=== PATIENT | female | born 1935 | race Caucasian/White ===

== ENCOUNTER 2023-10-13 15:22 | Inpatient (IN) | payer MEDICARE, OTHER ==
[~2023-10-13] VITALS: Ht 160 cm; Wt 63.5 kg
[~2023-10-13 15:22] MED LIST: PIPERACILLIN SODIUM/TAZOBACTAM 3.375 G in IV DEXTROSE 5% 100 ML IV SCH
[2023-10-13] MEDS ORDERED: HYDROMORPHONE 1 MG/1 ML DISP.SYRIN IV ONE ×2 (15:45→17:15)
[2023-10-13] MEDS ORDERED: NITROGLYCERIN OINT 1 GM PACKET TP ONE ×2 (15:45→16:00)
[2023-10-13] MEDS ORDERED: ONDANSETRON 4 MG/2 ML VIAL IV ONE (15:45)
[2023-10-13] MEDS ORDERED: MAGNESIUM SULFATE 2 GM in IV DEXTROSE 5% 100 ML IV ONE (15:45)
[2023-10-13] MEDS ORDERED: ONDANSETRON 4 MG/2 ML VIAL ONE (16:00)
[2023-10-13] MEDS ORDERED: HYDROMORPHONE 1 MG/1 ML DISP.SYRIN ONE ×2 (16:01→17:14)
[2023-10-13] MEDS ORDERED: MAGNESIUM SULFATE/D5W 200 ML ONE (16:01)
[2023-10-13 16:19] LABS: CALCIUM 10.1 mg/dL (8.5-10.1); CARBON DIOXIDE 26 mmol/L (21-32); CHLORIDE 105 mmol/L (98-107); GLUCOSE 160 mg/dL (74-106); SODIUM SERUM 145 mmol/L (136-145); UREA NITROGEN, BLOOD 15 mg/dL (7-18)
[2023-10-13 16:28] LABS: ALANINE AMINOTRANSFERASE 30 U/L (14-59); ALBUMIN 3.7 g/dL (3.4-5.0); ALKALINE PHOSPHATASE 111 U/L (50-136); ASPARTATE AMINOTRANSFERASE 26 U/L (15-37); BILIRUBIN,DIRECT 0.2 mg/dL (0.0-0.2); BILIRUBIN,TOTAL 1.2 mg/dL (0.2-1.0); LACTIC ACID 4.5 mmol/L (0.4-2.0); TOTAL PROTEIN, SERUM 7.9 g/dL (6.4-8.2)
[2023-10-13 16:30] LABS: BASOPHILS % (AUTO) 0.4 % (0.0-2.0); EOSINOPHILS % (AUTO) 0.2 % (0.0-7.0); HEMATOCRIT 45.1 % (31.2-41.9); LYMPHOCYTES # (AUTO) 0.6 K/uL (0.8-4.8); LYMPHOCYTES % (AUTO) 5.3 % (20.5-51.5); MEAN CORPUSCULAR HEMOGLOBIN 31.9 uug (24.7-32.8); MEAN CORPUSCULAR HGB CONC 33 g/dL (32.3-35.6); MEAN CORPUSCULAR VOLUME 95.8 fL (75.5-95.3); MONOCYTES # (AUTO) 0.5 K/uL (0.1-1.30); MONOCYTES % (AUTO) 4.7 % (0.0-11.0); NEUTROPHILS # (AUTO) 9.5 K/uL (1.8-8.9); NEUTROPHILS % (AUTO) 89.4 % (38.5-71.5); PLATELET COUNT (AUTO) 177 K/uL (179-408); RED BLOOD CELL COUNT(AUTO) 4.71 MIL/uL (3.63-4.92); RED CELL DISTRIBUTION WIDTH 14.8 % (12.3-17.7); WHITE BLOOD COUNT (AUTO) 10.6 K/uL (3.8-11.8)
[2023-10-13] MEDS ORDERED: IV NS 1000 ML 1,000 ML IV ONE (16:30)
[2023-10-13 16:47] LABS: DIFFERENTIAL COMMENT 1
[2023-10-13] MEDS ORDERED: METH5TAB34 PO (16:53)
[2023-10-13] MEDS ORDERED: ATOR80TA PO (16:53)
[2023-10-13] MEDS ORDERED: METH10TA7 PO (16:53)
[2023-10-13] MEDS ORDERED: ALPR0.5T8 PO (16:53)
[2023-10-13] MEDS ORDERED: LOSA25TA27 PO (16:53)
[2023-10-13] MEDS ORDERED: PIPERACILLIN/TAZOBACTAM/D5W 50 ML IV ONE (17:14)
[2023-10-13] MEDS ORDERED: PIPERACILLIN SODIUM/TAZOBACTAM 3.375 G in IV DEXTROSE 5% 50 ML IV ONE (17:15)
[2023-10-13] MEDS ORDERED: ONDANSETRON 4 MG/2 ML VIAL IV PRN (18:15)
[2023-10-13] MEDS ORDERED: ACETAMINOPHEN 325 MG TABLET PO PRN (18:15)
[2023-10-13] MEDS ORDERED: hydrALAZINE HCL 20 MG/1 ML VIAL ONE (18:29)
[2023-10-13] MEDS ORDERED: hydrALAZINE HCL 20 MG/1 ML VIAL IV ONE (18:30)
[2023-10-13 19:31] VITALS: BP 90/66; O2SAT 95
[2023-10-13] MEDS ORDERED: ENOXAPARIN SODIUM 40 MG/0.4 ML DISP.SYRIN SQ SCH (21:00)
[2023-10-14] MEDS ORDERED: PIPERACILLIN SODIUM/TAZOBACTAM 3.375 G in IV DEXTROSE 5% 50 ML IV SCH ×2
[2023-10-14 00:01] VITALS: BP 118/54; TEMP 99.1
[2023-10-14] MEDS: HYDROMORPHONE 1 MG/1 ML DISP.SYRIN IV PRN ×4 (00:48→20:36)
[2023-10-14] MEDS ORDERED: PIPERACILLIN SODIUM/TAZO 3.375 GM VIAL ONE (00:56)
[2023-10-14] MEDS: PIPERACILLIN SODIUM/TAZOBACTAM 3.375 G in IV DEXTROSE 5% 100 ML IV SCH ×3 (01:19→15:40)
[2023-10-14] MEDS: IV NS 1000 ML 1,000 ML IV PRN ×2 (01:20→15:41)
[2023-10-14 05:30] VITALS: BP 122/52; TEMP 99
[2023-10-14 06:48] LABS: BASOPHILS # (AUTO) 0.2 K/UL (0.0-0.2); BASOPHILS % (AUTO) 1.2 % (0.0-2.0); HEMATOCRIT 40.4 % (31.2-41.9); HEMOGLOBIN 13.4 g/dL (10.9-14.3); LYMPHOCYTES # (AUTO) 0.5 K/uL (0.8-4.8); LYMPHOCYTES % (AUTO) 2.7 % (20.5-51.5); MEAN CORPUSCULAR HEMOGLOBIN 31.6 uug (24.7-32.8); MEAN CORPUSCULAR HGB CONC 33 g/dL (32.3-35.6); MEAN CORPUSCULAR VOLUME 95.5 fL (75.5-95.3); MONOCYTES # (AUTO) 1.3 K/uL (0.1-1.30); MONOCYTES % (AUTO) 7.1 % (0.0-11.0); NEUTROPHILS # (AUTO) 16.2 K/uL (1.8-8.9); PLATELET COUNT (AUTO) 187 K/uL (179-408); RED BLOOD CELL COUNT(AUTO) 4.23 MIL/uL (3.63-4.92); RED CELL DISTRIBUTION WIDTH 14.9 % (12.3-17.7); WHITE BLOOD COUNT (AUTO) 18.2 K/uL (3.8-11.8)
[2023-10-14 06:54] LABS: CALCIUM 8.9 mg/dL (8.5-10.1); CARBON DIOXIDE 27 mmol/L (21-32); CHLORIDE 109 mmol/L (98-107); DIFFERENTIAL COMMENT 1; GLUCOSE 151 mg/dL (74-106); POTASSIUM 4.4 mmol/L (3.5-5.1); SODIUM SERUM 143 mmol/L (136-145); UREA NITROGEN, BLOOD 15 mg/dL (7-18)
[2023-10-14 07:00] LABS: ALANINE AMINOTRANSFERASE 25 U/L (14-59); ALBUMIN 2.9 g/dL (3.4-5.0); ALKALINE PHOSPHATASE 81 U/L (50-136); ASPARTATE AMINOTRANSFERASE 18 U/L (15-37); BILIRUBIN,DIRECT 0.3 mg/dL (0.0-0.2); BILIRUBIN,TOTAL 1.1 mg/dL (0.2-1.0); MAGNESIUM 2.4 mg/dL (1.8-2.4); PHOSPHOROUS 4.7 mg/dL (2.5-4.9); TOTAL PROTEIN, SERUM 6.7 g/dL (6.4-8.2)
[2023-10-14 08:00] VITALS: BP 118/55; TEMP 98.6; O2SAT 92
[2023-10-14] MEDS ORDERED: PANTOPRAZOLE SODIUM 40 MG VIAL IV SCH (09:00)
[2023-10-14 12:08] VITALS: BP 125/54; TEMP 98.5
[2023-10-14] MEDS ORDERED: LORAZEPAM 2 MG/1 ML VIAL IV ONE (12:30)
[2023-10-14 15:24] VITALS: BP 121/56; TEMP 98.4
[2023-10-14 20:00] VITALS: BP 136/62; TEMP 98.2; O2SAT 93
== END 2023-10-14 21:20 | disposition short-term general hospital (02) | DRG 445 ==
LOC: ER 15:24 → TELE-TD3 18:54 → TELE3 19:29 → MEDSURG3 20:55
PROVIDERS: ADMIT Nurse Practitioner Acute Care; ATTEND Nurse Practitioner Acute Care
DX: K80.63 Calculus of gallbladder and bile duct with acute cholecystitis with obstruction (principal); E87.20 Acidosis, unspecified; Z95.2 Presence of prosthetic heart valve; Z90.49 Acquired absence of other specified parts of digestive tract; Z79.899 Other long term (current) drug therapy; Z88.6 Allergy status to analgesic agent; Z87.19 Personal history of other diseases of the digestive system
CPT/HCPCS: 36415; 71045; 74181; 78445; 83605; 83690; 83735; 84100; 84484; 85025; 85730; 93005; 93307; A9537; C9113; G0378; J0360; J1170; J1650; J2060; J2405; J2543; J3475; J7040

== ENCOUNTER 2023-10-26 13:52 | Inpatient (IN) | payer MEDICARE, OTHER ==
[~2023-10-26] VITALS: Ht 162.6 cm; Wt 78.2 kg
[~2023-10-26 13:52] MED LIST changes: +ALPR0.5T8 PO; +ATOR80TA PO; +CELE100C PO; +ENOX40DI SUBCUT; +GABA-532 PO; +LACT-246 PO; +LOSA25TA27 PO; +METH10TA7 PO; +METH5TAB34 PO; +PANT40TA49 PO; +PIPE2.2512 IV; -PIPERACILLIN SODIUM/TAZOBACTAM 3.375 G in IV DEXTROSE 5% 100 ML IV SCH; +VANC1PLA9 IV
[2023-10-26 16:00] VITALS: BP 92/39; TEMP 98.7; O2SAT 91
[2023-10-26] MEDS ORDERED: PANT40TA49 PO (17:32)
[2023-10-26] MEDS ORDERED: ALPR0.255 PO (17:32)
[2023-10-26] MEDS ORDERED: ONDA-104 IV (17:32)
[2023-10-26] MEDS ORDERED: METH5TAB6 PO (17:32)
[2023-10-26] MEDS ORDERED: ACET325T53 PO ×2 (17:32)
[2023-10-26] MEDS ORDERED: TRAM50TA2 PO (17:32)
[2023-10-26] MEDS ORDERED: MERO1VIA23 IV (17:32)
[2023-10-26] MEDS ORDERED: METR500T PO (17:32)
[2023-10-26] MEDS ORDERED: ENOX40DI SQ (17:32)
[2023-10-26] MEDS ORDERED: METH10TA80 PO (17:32)
[2023-10-26] MEDS ORDERED: VANCOMYCIN IV 1,000 MG in IV DEXTROSE 5% 250 ML IV SCH (17:45)
[2023-10-26] MEDS ORDERED: PROTEIN SUPPLEMENT (PROSTAT) 30 ML LIQUID PO SCH (18:00)
[2023-10-26] MEDS ORDERED: IOHEXOL 300MG/ML 100 ML INFUS..BTL ONE (18:07)
[2023-10-26] MEDS ORDERED: IV NORMAL SALINE 250 ML IV ONE (18:07)
[2023-10-26] MEDS ORDERED: SWABABLE VALVE TRANSFER SET EA MC ONE (18:08)
[2023-10-26] MEDS: IV D5/ 0.9% NACL 1,000 ML IV PRN (19:59)
[2023-10-26] MEDS: ACETAMINOPHEN 650 MG SUPP.RECT RC PRN (20:01)
[2023-10-26 20:13] VITALS: BP 98/35; TEMP 101.2; O2SAT 96
[2023-10-26] MEDS: REMEDY ESSENTIAL ZINC PASTE 113 GM TOP SCH (20:47)
[2023-10-26] MEDS ORDERED: MEROPENEM 1 G VIAL IV SCH (21:00)
[2023-10-26] MEDS: MEROPENEM 1 G in IV NORMAL SALINE 100 ML IV SCH (21:25)
[2023-10-26] MEDS ORDERED: FENTANYL CITRATE 100 MCG/2 ML AMPUL ONE (22:28)
[2023-10-26] MEDS ORDERED: HYDROMORPHONE 2 MG/1 ML DISP.SYRIN ONE (22:28)
[2023-10-26] MEDS ORDERED: ROCURONIUM BROMIDE 50 MG/5 ML VIAL ONE (22:28)
[2023-10-26 22:40] VITALS: BP 82/36; TEMP 99; O2SAT 93
[2023-10-26] MEDS ORDERED: NOREPINEPHRINE BITARTRATE 4 MG/4 ML VIAL IV ONE (23:02)
[2023-10-26] MEDS ORDERED: ALBUMIN HUMAN 5% 250 ML ONE (23:19)
[2023-10-27] VITALS (41 sets, daily range): BP systolic 59–123; BP diastolic 29–67; TEMP 97.6–98.3; O2SAT 92–100
[2023-10-27 01:53] LABS: BASOPHILS % (AUTO) 0.1 % (0.0-2.0); HEMATOCRIT 24.1 % (31.2-41.9); LYMPHOCYTES # (AUTO) 0.8 K/uL (0.8-4.8); LYMPHOCYTES % (AUTO) 3.1 % (20.5-51.5); MEAN CORPUSCULAR HEMOGLOBIN 31.4 uug (24.7-32.8); MEAN CORPUSCULAR HGB CONC 33 g/dL (32.3-35.6); MEAN CORPUSCULAR VOLUME 94.9 fL (75.5-95.3); MONOCYTES # (AUTO) 0.5 K/uL (0.1-1.30); MONOCYTES % (AUTO) 1.8 % (0.0-11.0); NEUTROPHILS # (AUTO) 23.8 K/uL (1.8-8.9); PLATELET COUNT (AUTO) 522 K/uL (179-408); RED BLOOD CELL COUNT(AUTO) 2.53 MIL/uL (3.63-4.92); RED CELL DISTRIBUTION WIDTH 15.3 % (12.3-17.7)
[2023-10-27 02:23] LABS: DIFFERENTIAL COMMENT 1
[2023-10-27] MEDS ORDERED: BUPIVACAINE 0.25% 30 ML VIAL ONE (03:14)
[2023-10-27] MEDS ORDERED: LIDOCAINE 1%-EPI 1:100,000 20 ML VIAL ONE (03:14)
[2023-10-27 05:09] LABS: BASOPHILS % (AUTO) 0.1 % (0.0-2.0); HEMATOCRIT 23.7 % (31.2-41.9); HEMOGLOBIN 7.9 g/dL (10.9-14.3); LYMPHOCYTES # (AUTO) 0.4 K/uL (0.8-4.8); LYMPHOCYTES % (AUTO) 1.7 % (20.5-51.5); MEAN CORPUSCULAR HEMOGLOBIN 31.7 uug (24.7-32.8); MEAN CORPUSCULAR HGB CONC 33 g/dL (32.3-35.6); MEAN CORPUSCULAR VOLUME 95.4 fL (75.5-95.3); MONOCYTES # (AUTO) 0.4 K/uL (0.1-1.30); NEUTROPHILS # (AUTO) 21.5 K/uL (1.8-8.9); NEUTROPHILS % (AUTO) 96.2 % (38.5-71.5); PLATELET COUNT (AUTO) 523 K/uL (179-408); RED CELL DISTRIBUTION WIDTH 15.2 % (12.3-17.7); WHITE BLOOD COUNT (AUTO) 22.4 K/uL (3.8-11.8)
[2023-10-27] MEDS: ONDANSETRON 4 MG/2 ML VIAL IV PRN (05:15)
[2023-10-27] MEDS: MORPHINE SULFATE 2 MG/1 ML DISP.SYRIN IV PRN (05:16)
[2023-10-27 05:17] LABS: DIFFERENTIAL COMMENT 1; RED BLOOD CELL COUNT(AUTO) 2.49 MIL/uL (3.63-4.92)
[2023-10-27 05:18] LABS: CALCIUM 6.9 mg/dL (8.5-10.1); CARBON DIOXIDE 21 mmol/L (21-32); CHLORIDE 105 mmol/L (98-107); CREATININE 2.6 mg/dL (0.6-1.3); GLUCOSE 125 mg/dL (74-106); POTASSIUM 5.4 mmol/L (3.5-5.1); SODIUM SERUM 138 mmol/L (136-145); UREA NITROGEN, BLOOD 23 mg/dL (7-18)
[2023-10-27 05:22] LABS: MAGNESIUM 1.6 mg/dL (1.8-2.4)
[2023-10-27] MEDS: PROPOFOL 100 ML IV PRN (05:30)
[2023-10-27] MEDS: NOREPINEPHRINE BITARTRATE 4 MG/4 ML VIAL IV ONE (05:33)
[2023-10-27] MEDS: NOREPINEPHRINE BITARTRATE 8 MG in IV NORMAL SALINE 242 ML IV PRN (05:57)
[2023-10-27] MEDS: PANTOPRAZOLE SODIUM 40 MG VIAL IV SCH (08:33)
[2023-10-27] MEDS ORDERED: PROTEIN SUPPLEMENT (PROSTAT) 30 ML LIQUID PO SCH (09:00)
[2023-10-27] MEDS ORDERED: ENOXAPARIN SODIUM 40 MG/0.4 ML DISP.SYRIN SQ SCH (09:00)
[2023-10-27] MEDS: ENOXAPARIN SODIUM 30 MG/0.3 ML DISP.SYRIN SQ SCH (09:00)
[2023-10-27] MEDS ORDERED: PANTOPRAZOLE SODIUM 40 MG VIAL IV SCH (09:00)
[2023-10-27 09:31] LABS: ABG BASE EXCESS -10.1 mmol/L (-2.0-2.0); ABG HCO3 16.4 mmol/L (22.0-26.0); ABG PCO2 38.7 mmHg (35.0-48.0); ABG PH 7.246 (7.340-7.440); ABG PO2 220.1 mmHg (75.0-100.0); ABG SITE LEFT BRACHIAL; ABG TOTAL HEMOGLOBIN 9.1 G/dL (12.0-16.0); AaDO2 99.3 mmHg; COHb 0.3 % (0.0-3.9); MetHb 0.5 % (0.0-1.5); O2Hb 98.5 % (94.0-97.0); VT, ABG 450 mL
[2023-10-27] MEDS: FUROSEMIDE 40 MG/4 ML VIAL IV SCH (09:54)
[2023-10-27] MEDS: MAGNESIUM SULFATE/D5W 100 ML IV SCH (11:22)
[2023-10-27] MEDS: FENTANYL CITRATE/PF 1,000 MCG in IV NORMAL SALINE 80 ML IV PRN (11:39)
[2023-10-27 13:22] LABS: HEMOGLOBIN 7.3 g/dL (10.9-14.3)
[2023-10-27] MEDS ORDERED: FLUCONAZOLE 200 MG/NS 100ML IV 200 MG in PREMIXED 1 EACH IV SCH (16:30)
[2023-10-27] MEDS: FLUCONAZOLE 200 MG/NS 100ML IV 100 MG in PREMIXED 1 EACH IV SCH (17:42)
[2023-10-27] MEDS: NOREPINEPHRINE BITARTRATE 32 MG in IV NORMAL SALINE 218 ML IV PRN (17:43)
[2023-10-27] MEDS: IV D5/ 0.9% NACL 1,000 ML IV PRN (18:30)
[2023-10-27] MEDS ORDERED: PROPOFOL 200 MG/20 ML BOTTLE ONE (22:15)
[2023-10-27] MEDS ORDERED: ONDANSETRON 4 MG/2 ML VIAL ONE (22:15)
[2023-10-27] MEDS ORDERED: DEXAMETHASONE SOD PHOSPHATE 4 MG INJ ONE (22:15)
[2023-10-27] MEDS ORDERED: CEFAZOLIN 1 G VIAL ONE (22:15)
[2023-10-28] VITALS (79 sets, daily range): BP systolic 75–164; BP diastolic 40–76; TEMP 97–99; O2SAT 92–100
[2023-10-28 04:58] LABS: BASOPHILS # (AUTO) 0.2 K/UL (0.0-0.2); BASOPHILS % (AUTO) 0.7 % (0.0-2.0); HEMOGLOBIN 8.5 g/dL (10.9-14.3); LYMPHOCYTES # (AUTO) 0.5 K/uL (0.8-4.8); LYMPHOCYTES % (AUTO) 1.9 % (20.5-51.5); MEAN CORPUSCULAR HEMOGLOBIN 30.5 uug (24.7-32.8); MEAN CORPUSCULAR HGB CONC 33 g/dL (32.3-35.6); MEAN CORPUSCULAR VOLUME 93.8 fL (75.5-95.3); MONOCYTES # (AUTO) 0.9 K/uL (0.1-1.30); MONOCYTES % (AUTO) 3.2 % (0.0-11.0); NEUTROPHILS # (AUTO) 26.3 K/uL (1.8-8.9); NEUTROPHILS % (AUTO) 94.2 % (38.5-71.5); PLATELET COUNT (AUTO) 425 K/uL (179-408); RED BLOOD CELL COUNT(AUTO) 2.77 MIL/uL (3.63-4.92); RED CELL DISTRIBUTION WIDTH 16.8 % (12.3-17.7); WHITE BLOOD COUNT (AUTO) 27.9 K/uL (3.8-11.8)
[2023-10-28 05:23] LABS: ALANINE AMINOTRANSFERASE 11 U/L (14-59); ALKALINE PHOSPHATASE 107 U/L (50-136); ASPARTATE AMINOTRANSFERASE 54 U/L (15-37); BILIRUBIN,TOTAL 0.4 mg/dL (0.2-1.0); CALCIUM 6.2 mg/dL (8.5-10.1); CARBON DIOXIDE 19 mmol/L (21-32); CHLORIDE 106 mmol/L (98-107); CREATININE 3.5 mg/dL (0.6-1.3); GLUCOSE 254 mg/dL (74-106); MAGNESIUM 2.4 mg/dL (1.8-2.4); PHOSPHOROUS 6.8 mg/dL (2.5-4.9); POTASSIUM 5.1 mmol/L (3.5-5.1); SODIUM SERUM 137 mmol/L (136-145); TOTAL PROTEIN, SERUM 5.6 g/dL (6.4-8.2); UREA NITROGEN, BLOOD 33 mg/dL (7-18); VANCOMYCIN,RANDOM 14.6 ug/mL (20.0-30.0)
[2023-10-28 05:35] LABS: ALBUMIN 1.3 g/dL (3.4-5.0)
[2023-10-28 05:36] LABS: DIFFERENTIAL COMMENT 1
[2023-10-28] MEDS: ALBUMIN HUMAN 25% 100 ML IV SCH (09:28)
[2023-10-28] MEDS: VANCOMYCIN IV 1,000 MG in IV DEXTROSE 5% 250 ML IV ONE (15:01)
[2023-10-28] MEDS: HEPARIN SODIUM,PORCINE 5,000 UNITS/ML VIAL SQ SCH (20:25)
[2023-10-28] MEDS: MEROPENEM 1 G in IV NORMAL SALINE 100 ML IV SCH (22:04)
[2023-10-29] VITALS (74 sets, daily range): BP systolic 87–181; BP diastolic 27–97; TEMP 97.2–99.5; O2SAT 91–100
[2023-10-29 04:54] LABS: BASOPHILS % (AUTO) 0.1 % (0.0-2.0); EOSINOPHILS # (AUTO) 0.1 K/uL (0.0-0.7); LYMPHOCYTES # (AUTO) 0.5 K/uL (0.8-4.8); MEAN CORPUSCULAR VOLUME 93.8 fL (75.5-95.3); RED CELL DISTRIBUTION WIDTH 16.8 % (12.3-17.7)
[2023-10-29 04:56] LABS: EOSINOPHILS % (AUTO) 0.5 % (0.0-7.0); HEMATOCRIT 21.3 % (31.2-41.9); MEAN CORPUSCULAR HEMOGLOBIN 31.6 uug (24.7-32.8); MEAN CORPUSCULAR HGB CONC 34 g/dL (32.3-35.6); MONOCYTES # (AUTO) 0.3 K/uL (0.1-1.30); MONOCYTES % (AUTO) 2.2 % (0.0-11.0); NEUTROPHILS # (AUTO) 14.9 K/uL (1.8-8.9); NEUTROPHILS % (AUTO) 94.2 % (38.5-71.5); PLATELET COUNT (AUTO) 280 K/uL (179-408); WHITE BLOOD COUNT (AUTO) 15.8 K/uL (3.8-11.8)
[2023-10-29 05:27] LABS: ALANINE AMINOTRANSFERASE 8 U/L (14-59); ALBUMIN 2.5 g/dL (3.4-5.0); ALKALINE PHOSPHATASE 80 U/L (50-136); ASPARTATE AMINOTRANSFERASE 31 U/L (15-37); BILIRUBIN,TOTAL 0.7 mg/dL (0.2-1.0); CALCIUM 6.7 mg/dL (8.5-10.1); CARBON DIOXIDE 18 mmol/L (21-32); CHLORIDE 107 mmol/L (98-107); CREATININE 4.2 mg/dL (0.6-1.3); DIFFERENTIAL COMMENT 1; GLUCOSE 113 mg/dL (74-106); HEMOGLOBIN 7.2 g/dL (10.9-14.3); MAGNESIUM 2.5 mg/dL (1.8-2.4); PHOSPHOROUS 7.1 mg/dL (2.5-4.9); RED BLOOD CELL COUNT(AUTO) 2.27 MIL/uL (3.63-4.92); SODIUM SERUM 139 mmol/L (136-145); TOTAL PROTEIN, SERUM 5.7 g/dL (6.4-8.2); UREA NITROGEN, BLOOD 39 mg/dL (7-18)
[2023-10-29] MEDS ORDERED: HEPARIN SODIUM,PORCINE 5,000 UNITS/ML VIAL SQ SCH (05:45)
[2023-10-29 06:24] LABS: ABG BASE EXCESS -10.9 mmol/L (-2.0-2.0); ABG HCO3 14.7 mmol/L (22.0-26.0); ABG PCO2 31.7 mmHg (35.0-48.0); ABG PH 7.285 (7.340-7.440); ABG PO2 71.8 mmHg (75.0-100.0); ABG SITE RIGHT RADIAL; ABG TOTAL HEMOGLOBIN 8.4 G/dL (12.0-16.0); AaDO2 92.9 mmHg; COHb 0.3 % (0.0-3.9); MetHb 0.6 % (0.0-1.5); VT, ABG 480 mL
[2023-10-29] MEDS ORDERED: NOREPINEPHRINE BITARTRATE 8 MG in IV NORMAL SALINE 242 ML IV PRN (07:07)
[2023-10-29] MEDS: FUROSEMIDE 40 MG/4 ML VIAL IV ONE (08:25)
[2023-10-29] MEDS: LINEZOLID IV 600 MG in PREMIXED 1 EACH IV SCH (08:25)
[2023-10-29] MEDS: NOREPINEPHRINE BITARTRATE 32 MG in IV NORMAL SALINE 218 ML IV PRN (10:35)
[2023-10-29] MEDS: BUMETANIDE INJ 4 MG in IV DEXTROSE 5% 24 ML IV ONE (13:26)
[2023-10-29] MEDS: SODIUM BICARBONATE 8.4% 150 MEQ in IV D5W 1000ML 1,000 ML IV PRN (13:58)
[2023-10-29 16:07] LABS: *BILIRUBIN,URIN NEGATIVE (NEGATIVE); *BLOOD, URINE 1+ (NEGATIVE); *CLARITY,URINE SLIGHTLY CLOUDY (CLEAR); *COLOR,URINE YELLOW (YELLOW); *KETONES,URINE NEGATIVE (NEGATIVE); *PROTEIN,URINE 2+ (NEGATIVE); *UROBILINOGEN,URINE 0.2 E.U./dl (NORMAL); LEUKOCYTE ESTERASE ,URINE 1+ (NEGATIVE); NITRITE, URINE NEGATIVE (NEGATIVE); UGLUCOSE NEGATIVE (NEGATIVE)
[2023-10-29 16:13] LABS: *CREATININE,URINE 75.3 mg/dL (30-125); *URINE TOTAL PROTEIN RANDOM 171.3 mg/dL (<150/24HR)
[2023-10-29 16:23] LABS: BACTERIA,URINE MANY /HPF (NONE SEEN); SQUAMOUS EPITHELIAL CELL,UR FEW /HPF (NONE SEEN); WBC,URINE 50-80 /HPF (0-3); YEAST,URINE BUDDING YEAST /HPF (NONE SEEN)
[2023-10-29] MEDS ORDERED: NOREPINEPHRINE BITARTRATE 32 MG in IV NORMAL SALINE 218 ML IV PRN (17:45)
[2023-10-29] MEDS: MEROPENEM 500 MG in IV NORMAL SALINE 50 ML IV SCH (23:52)
[2023-10-30] VITALS (31 sets, daily range): BP systolic 88–123; BP diastolic 37–63; TEMP 98.1–99.2; O2SAT 95–99
[2023-10-30] MEDS: NOREPINEPHRINE BITARTRATE 8 MG in IV NORMAL SALINE 242 ML IV PRN (00:50)
[2023-10-30 04:53] LABS: BASOPHILS # (AUTO) 0.1 K/UL (0.0-0.2); BASOPHILS % (AUTO) 0.4 % (0.0-2.0); EOSINOPHILS # (AUTO) 0.1 K/uL (0.0-0.7); EOSINOPHILS % (AUTO) 0.8 % (0.0-7.0); HEMATOCRIT 26.7 % (31.2-41.9); HEMOGLOBIN 8.9 g/dL (10.9-14.3); LYMPHOCYTES # (AUTO) 0.5 K/uL (0.8-4.8); MEAN CORPUSCULAR HEMOGLOBIN 31.2 uug (24.7-32.8); MEAN CORPUSCULAR HGB CONC 34 g/dL (32.3-35.6); MEAN CORPUSCULAR VOLUME 93.1 fL (75.5-95.3); MONOCYTES # (AUTO) 0.5 K/uL (0.1-1.30); NEUTROPHILS # (AUTO) 15.9 K/uL (1.8-8.9); NEUTROPHILS % (AUTO) 92.8 % (38.5-71.5); PLATELET COUNT (AUTO) 278 K/uL (179-408); RED BLOOD CELL COUNT(AUTO) 2.87 MIL/uL (3.63-4.92); RED CELL DISTRIBUTION WIDTH 17.1 % (12.3-17.7); WHITE BLOOD COUNT (AUTO) 17.1 K/uL (3.8-11.8)
[2023-10-30 05:07] LABS: DIFFERENTIAL COMMENT 1
[2023-10-30 05:24] LABS: CALCIUM 7.5 mg/dL (8.5-10.1); CARBON DIOXIDE 20 mmol/L (21-32); CHLORIDE 104 mmol/L (98-107); CREATININE 4.5 mg/dL (0.6-1.3); GLUCOSE 91 mg/dL (74-106); MAGNESIUM 2.3 mg/dL (1.8-2.4); SODIUM SERUM 137 mmol/L (136-145); UREA NITROGEN, BLOOD 46 mg/dL (7-18)
[2023-10-30 05:34] LABS: PHOSPHOROUS 8.1 mg/dL (2.5-4.9)
[2023-10-30 06:14] LABS: ABG BASE EXCESS -8.6 mmol/L (-2.0-2.0); ABG HCO3 16.9 mmol/L (22.0-26.0); ABG PCO2 34.6 mmHg (35.0-48.0); ABG PH 7.306 (7.340-7.440); ABG SITE LEFT RADIAL; ABG TOTAL HEMOGLOBIN 9.2 G/dL (12.0-16.0); AaDO2 95.9 mmHg; COHb 0.3 % (0.0-3.9); MetHb 0.3 % (0.0-1.5); O2Hb 95.7 % (94.0-97.0); VT, ABG 480 mL
[2023-10-30] MEDS ORDERED: LIDOCAINE HCL 1% 20 ML VIAL ONE (08:18)
[2023-10-31] VITALS (68 sets, daily range): BP systolic 92–158; BP diastolic 42–72; TEMP 97.7–99.3; O2SAT 93–96
[2023-10-31] MEDS: DILTIAZEM HCL IV 125 MG in IV NORMAL SALINE 100 ML IV PRN (00:01)
[2023-10-31] MEDS ORDERED: DILTIAZEM HCL 50 MG IV ONE ×2 (01:54→01:57)
[2023-10-31 05:30] LABS: BASOPHILS % (AUTO) 0.1 % (0.0-2.0); EOSINOPHILS # (AUTO) 0.2 K/uL (0.0-0.7); HEMATOCRIT 32.6 % (31.2-41.9); LYMPHOCYTES # (AUTO) 0.8 K/uL (0.8-4.8); LYMPHOCYTES % (AUTO) 4.1 % (20.5-51.5); MEAN CORPUSCULAR HEMOGLOBIN 30.8 uug (24.7-32.8); MEAN CORPUSCULAR HGB CONC 34 g/dL (32.3-35.6); MEAN CORPUSCULAR VOLUME 91.6 fL (75.5-95.3); MONOCYTES # (AUTO) 0.7 K/uL (0.1-1.30); MONOCYTES % (AUTO) 3.6 % (0.0-11.0); NEUTROPHILS # (AUTO) 17.1 K/uL (1.8-8.9); NEUTROPHILS % (AUTO) 91.2 % (38.5-71.5); PLATELET COUNT (AUTO) 339 K/uL (179-408); RED BLOOD CELL COUNT(AUTO) 3.56 MIL/uL (3.63-4.92); RED CELL DISTRIBUTION WIDTH 17.2 % (12.3-17.7); WHITE BLOOD COUNT (AUTO) 18.8 K/uL (3.8-11.8)
[2023-10-31 05:55] LABS: CALCIUM 8.1 mg/dL (8.5-10.1); CARBON DIOXIDE 22 mmol/L (21-32); CHLORIDE 99 mmol/L (98-107); CREATININE 4.5 mg/dL (0.6-1.3); GLUCOSE 92 mg/dL (74-106); MAGNESIUM 2.3 mg/dL (1.8-2.4); POTASSIUM 4.6 mmol/L (3.5-5.1); SODIUM SERUM 136 mmol/L (136-145); UREA NITROGEN, BLOOD 52 mg/dL (7-18)
[2023-10-31 06:18] LABS: DIFFERENTIAL COMMENT 1
[2023-10-31 06:20] LABS: PHOSPHOROUS 8.8 mg/dL (2.5-4.9)
[2023-10-31 06:24] LABS: ABG BASE EXCESS -5.7 mmol/L (-2.0-2.0); ABG HCO3 19.2 mmol/L (22.0-26.0); ABG PCO2 35.7 mmHg (35.0-48.0); ABG PH 7.349 (7.340-7.440); ABG PO2 70.6 mmHg (75.0-100.0); ABG SITE RIGHT RADIAL; ABG TOTAL HEMOGLOBIN 13.1 G/dL (12.0-16.0); AaDO2 93.6 mmHg; COHb 0.4 % (0.0-3.9); MetHb 0.5 % (0.0-1.5); O2Hb 92.7 % (94.0-97.0); VT, ABG 480 mL
[2023-10-31] MEDS: NOREPINEPHRINE BITARTRATE 32 MG in IV NORMAL SALINE 218 ML IV PRN (08:05)
[2023-10-31] MEDS: FUROSEMIDE 40 MG/4 ML VIAL IV SCH (08:34)
[2023-11-01] VITALS (73 sets, daily range): BP systolic 90–161; BP diastolic 47–83; TEMP 98.3–99.5; O2SAT 92–97
[2023-11-01 05:05] LABS: BASOPHILS # (AUTO) 0.2 K/UL (0.0-0.2); BASOPHILS % (AUTO) 1.5 % (0.0-2.0); EOSINOPHILS # (AUTO) 0.3 K/uL (0.0-0.7); EOSINOPHILS % (AUTO) 1.8 % (0.0-7.0); HEMATOCRIT 27.4 % (31.2-41.9); HEMOGLOBIN 9.4 g/dL (10.9-14.3); LYMPHOCYTES # (AUTO) 0.6 K/uL (0.8-4.8); LYMPHOCYTES % (AUTO) 4.1 % (20.5-51.5); MEAN CORPUSCULAR HEMOGLOBIN 31.2 uug (24.7-32.8); MEAN CORPUSCULAR HGB CONC 34 g/dL (32.3-35.6); MEAN CORPUSCULAR VOLUME 91.2 fL (75.5-95.3); MONOCYTES # (AUTO) 0.6 K/uL (0.1-1.30); MONOCYTES % (AUTO) 4.1 % (0.0-11.0); NEUTROPHILS % (AUTO) 88.5 % (38.5-71.5); PLATELET COUNT (AUTO) 273 K/uL (179-408); RED CELL DISTRIBUTION WIDTH 16.6 % (12.3-17.7); WHITE BLOOD COUNT (AUTO) 14.7 K/uL (3.8-11.8)
[2023-11-01 05:41] LABS: DIFFERENTIAL COMMENT 1
[2023-11-01 05:46] LABS: CALCIUM 7.8 mg/dL (8.5-10.1); CARBON DIOXIDE 27 mmol/L (21-32); CHLORIDE 99 mmol/L (98-107); CREATININE 4.2 mg/dL (0.6-1.3); GLUCOSE 95 mg/dL (74-106); MAGNESIUM 1.9 mg/dL (1.8-2.4); TRIGLYCERIDES 116 MG/DL (30-150); UREA NITROGEN, BLOOD 56 mg/dL (7-18)
[2023-11-01 05:51] LABS: PHOSPHOROUS 8.8 mg/dL (2.5-4.9)
[2023-11-01 05:52] LABS: SODIUM SERUM 139 mmol/L (136-145)
[2023-11-01 07:36] LABS: ABG BASE EXCESS 0.2 mmol/L (-2.0-2.0); ABG HCO3 23.9 mmol/L (22.0-26.0); ABG PH 7.452 (7.340-7.440); ABG PO2 75.8 mmHg (75.0-100.0); ABG SITE RIGHT RADIAL; ABG TOTAL HEMOGLOBIN 10.6 G/dL (12.0-16.0); AaDO2 95.9 mmHg; COHb 0.3 % (0.0-3.9); MetHb 0.1 % (0.0-1.5); O2Hb 94.4 % (94.0-97.0)
[2023-11-01] MEDS: IV D5W 1000ML 1,000 ML IV PRN (12:44)
[2023-11-01 13:27] LABS: BAND % (MANUAL) 27 % (0-10); EOSINOPHILS % (MANUAL) 1 % (0-8); LYMPHOCYTES % (MANUAL) 10 % (20-40); MONOCYTES % (MANUAL) 8 % (2-10); NEUTROPHILS % (MANUAL) 54 % (42-75)
[2023-11-01 13:28] LABS: ANISOCYTOSIS 1+; PLATELET ESTIMATE ADEQUATE
[2023-11-01] MEDS: NOREPINEPHRINE BITARTRATE 8 MG in IV NORMAL SALINE 242 ML IV PRN (20:05)
[2023-11-01] MEDS ORDERED: DILTIAZEM HCL IV 125 MG in IV NORMAL SALINE 100 ML IV PRN (21:15)
[2023-11-01] MEDS ORDERED: DILTIAZEM HCL 50 MG IV ONE (21:43)
[2023-11-01] MEDS: DILTIAZEM HCL IV 125 MG in IV NORMAL SALINE 100 ML IV PRN (21:53)
[2023-11-02] VITALS (80 sets, daily range): BP systolic 105–164; BP diastolic 46–69; TEMP 97.9–99.7; O2SAT 92–97
[2023-11-02 04:52] LABS: BASOPHILS # (AUTO) 0.2 K/UL (0.0-0.2); EOSINOPHILS # (AUTO) 0.1 K/uL (0.0-0.7); EOSINOPHILS % (AUTO) 0.6 % (0.0-7.0); HEMATOCRIT 27.9 % (31.2-41.9); HEMOGLOBIN 9.5 g/dL (10.9-14.3); LYMPHOCYTES # (AUTO) 0.7 K/uL (0.8-4.8); LYMPHOCYTES % (AUTO) 4.4 % (20.5-51.5); MEAN CORPUSCULAR HEMOGLOBIN 31.1 uug (24.7-32.8); MEAN CORPUSCULAR HGB CONC 34 g/dL (32.3-35.6); MEAN CORPUSCULAR VOLUME 91.3 fL (75.5-95.3); MONOCYTES # (AUTO) 0.9 K/uL (0.1-1.30); MONOCYTES % (AUTO) 5.2 % (0.0-11.0); NEUTROPHILS # (AUTO) 15.1 K/uL (1.8-8.9); NEUTROPHILS % (AUTO) 88.8 % (38.5-71.5); PLATELET COUNT (AUTO) 186 K/uL (179-408); RED BLOOD CELL COUNT(AUTO) 3.05 MIL/uL (3.63-4.92); RED CELL DISTRIBUTION WIDTH 16.4 % (12.3-17.7)
[2023-11-02 05:24] LABS: DIFFERENTIAL COMMENT 1
[2023-11-02 05:47] LABS: CALCIUM 8.1 mg/dL (8.5-10.1); CARBON DIOXIDE 29 mmol/L (21-32); CHLORIDE 96 mmol/L (98-107); CREATININE 3.9 mg/dL (0.6-1.3); GLUCOSE 112 mg/dL (74-106); MAGNESIUM 1.7 mg/dL (1.8-2.4); POTASSIUM 3.5 mmol/L (3.5-5.1); SODIUM SERUM 137 mmol/L (136-145); UREA NITROGEN, BLOOD 62 mg/dL (7-18)
[2023-11-02 05:50] LABS: PHOSPHOROUS 8.7 mg/dL (2.5-4.9)
[2023-11-02 05:59] LABS: C-REACTIVE PROTEIN 31.78 mg/dL (0.00-0.30)
[2023-11-02 08:29] LABS: ABG BASE EXCESS 3.6 mmol/L (-2.0-2.0); ABG HCO3 26.2 mmol/L (22.0-26.0); ABG PCO2 32.4 mmHg (35.0-48.0); ABG PH 7.525 (7.340-7.440); ABG SITE LEFT FEMORAL; ABG TOTAL HEMOGLOBIN 10.3 G/dL (12.0-16.0); COHb 0.3 % (0.0-3.9); MetHb 0.3 % (0.0-1.5); O2Hb 95.4 % (94.0-97.0); VT, ABG 480 mL
[2023-11-03] VITALS (44 sets, daily range): BP systolic 92–161; BP diastolic 43–94; TEMP 97.9–99.6; O2SAT 92–99
[2023-11-03 05:36] LABS: BASOPHILS % (AUTO) 0.1 % (0.0-2.0); DIFFERENTIAL COMMENT 0; EOSINOPHILS # (AUTO) 0.2 K/uL (0.0-0.7); EOSINOPHILS % (AUTO) 1.4 % (0.0-7.0); HEMATOCRIT 27.3 % (31.2-41.9); HEMOGLOBIN 9.4 g/dL (10.9-14.3); LYMPHOCYTES # (AUTO) 0.7 K/uL (0.8-4.8); LYMPHOCYTES % (AUTO) 4.4 % (20.5-51.5); MEAN CORPUSCULAR HEMOGLOBIN 31.5 uug (24.7-32.8); MEAN CORPUSCULAR HGB CONC 35 g/dL (32.3-35.6); MEAN CORPUSCULAR VOLUME 91.5 fL (75.5-95.3); MONOCYTES # (AUTO) 0.8 K/uL (0.1-1.30); NEUTROPHILS # (AUTO) 14.3 K/uL (1.8-8.9); NEUTROPHILS % (AUTO) 89.1 % (38.5-71.5); PLATELET COUNT (AUTO) 117 K/uL (179-408); RED BLOOD CELL COUNT(AUTO) 2.98 MIL/uL (3.63-4.92); RED CELL DISTRIBUTION WIDTH 16.2 % (12.3-17.7)
[2023-11-03 05:50] LABS: CALCIUM 8.1 mg/dL (8.5-10.1); CARBON DIOXIDE 31 mmol/L (21-32); CHLORIDE 94 mmol/L (98-107); CREATININE 3.5 mg/dL (0.6-1.3); GLUCOSE 106 mg/dL (74-106); MAGNESIUM 1.6 mg/dL (1.8-2.4); POTASSIUM 3.2 mmol/L (3.5-5.1); SODIUM SERUM 134 mmol/L (136-145); UREA NITROGEN, BLOOD 61 mg/dL (7-18)
[2023-11-03 05:57] LABS: PHOSPHOROUS 8.4 mg/dL (2.5-4.9)
[2023-11-03] MEDS: POTASSIUM CHLORIDE 50 ML IV SCH (07:09)
[2023-11-03] MEDS: MAGNESIUM SULFATE/D5W 100 ML IV SCH (08:21)
[2023-11-03 08:43] LABS: ABG BASE EXCESS 3.3 mmol/L (-2.0-2.0); ABG HCO3 27.9 mmol/L (22.0-26.0); ABG PCO2 42.5 mmHg (35.0-48.0); ABG PH 7.435 (7.340-7.440); ABG PO2 92.7 mmHg (75.0-100.0); ABG SITE LEFT RADIAL; AaDO2 97.3 mmHg; VT, ABG 480 mL
[2023-11-03] MEDS ORDERED: DC PROPOFOL ONCE EXTUBATED XX PRN (13:30)
[2023-11-03] MEDS ORDERED: MORPHINE SULFATE 4 MG/1 ML DISP.SYRIN IV PRN (13:30)
[2023-11-03] MEDS ORDERED: MORPHINE SULFATE PF IV DRIP 100 MG in IV DEXTROSE 5% 96 ML IV PRN (13:30)
[2023-11-03] MEDS: MORPHINE SULFATE 2 MG/1 ML DISP.SYRIN IV ONE (13:48)
[2023-11-03] MEDS: MORPHINE SULFATE PF IV DRIP 100 MG in IV DEXTROSE 5% 96 ML IV PRN (14:37)
== END 2023-11-03 19:10 | DRG 856 ==
LOC: TELE3 13:52 → CCU 10-27 00:28
PROVIDERS: ADMIT Internal Medicine; ATTEND Internal Medicine
PROC: 0D1 Gastrointestinal System, Bypass (ICD-10-PCS; principal; 2023-10-27)
PROC: 0DH60UZ Insertion of Feeding Device into Stomach, Open Approach (ICD-10-PCS; 2023-10-27)
PROC: 5A1955Z Respiratory Ventilation, Greater than 96 Consecutive Hours (ICD-10-PCS; 2023-10-27)
PROC: 0BH18EZ Insertion of Endotracheal Airway into Trachea, Via Natural or Artificial Opening Endoscopic (ICD-10-PCS; 2023-10-27)
PROC: 30233N1 Transfusion of Nonautologous Red Blood Cells into Peripheral Vein, Percutaneous Approach (ICD-10-PCS; 2023-10-27)
PROC: 0W9F30Z Drainage of Abdominal Wall with Drainage Device, Percutaneous Approach (ICD-10-PCS; 2023-10-30)
DX: T81.44XA Sepsis following a procedure, initial encounter (principal); A41.9 Sepsis, unspecified organism; E43 Unspecified severe protein-calorie malnutrition; I50.31 Acute diastolic (congestive) heart failure; K63.1 Perforation of intestine (nontraumatic); N17.0 Acute kidney failure with tubular necrosis; K65.9 Peritonitis, unspecified; R65.21 Severe sepsis with septic shock; J12.9 Viral pneumonia, unspecified; J69.0 Pneumonitis due to inhalation of food and vomit; J96.00 Acute respiratory failure, unspecified whether with hypoxia or hypercapnia; D68.59 Other primary thrombophilia; K50.90 Crohn's disease, unspecified, without complications; B37.49 Other urogenital candidiasis; E87.20 Acidosis, unspecified; K43.6 Other and unspecified ventral hernia with obstruction, without gangrene; Z66 Do not resuscitate; Z51.5 Encounter for palliative care; E03.9 Hypothyroidism, unspecified; E87.6 Hypokalemia; I11.0 Hypertensive heart disease with heart failure; Z95.2 Presence of prosthetic heart valve; E83.42 Hypomagnesemia; K21.9 Gastro-esophageal reflux disease without esophagitis; K66.0 Peritoneal adhesions (postprocedural) (postinfection); K42.9 Umbilical hernia without obstruction or gangrene; Z74.09 Other reduced mobility; Z90.49 Acquired absence of other specified parts of digestive tract; E78.5 Hyperlipidemia, unspecified; E88.09 Other disorders of plasma-protein metabolism, not elsewhere classified; I48.0 Paroxysmal atrial fibrillation; Z93.2 Ileostomy status; Z86.73 Personal history of transient ischemic attack (TIA), and cerebral infarction without residual deficits; Y92.234 Operating room of hospital as the place of occurrence of the external cause; D64.9 Anemia, unspecified
CPT/HCPCS: 36415; 36569; 36600; 70030-TC; 71045; 71250; 82803; 83605; 83735; 84100; 84300; 84478; 85018; 85025; 85610; 86140; 86850; 86900; 86901; 86920; 93307; 94002; 94003; 94760; 99082-TC; A4606; A4649; A4663; C9113; G0378; J0690; J1100; J1170; J1450; J1644; J1650; J1940; J2020; J2185; J2270; J2274; J2405; J3010; J3370; J3475; J3480; J3490; J7042; J7050; J7070; P9016; P9045; P9047; Q9967